=== PATIENT | female | born 1970 | race Caucasian/White ===

== ENCOUNTER 2019-06-03 11:39 | Outpatient (CLI) | payer BC ==
--- NOTE | 2019-06-03 12:11 | RAD ---
XR Chest Pa Lat STANDARD HISTORY: Chronic cough COMPARISON: None FINDINGS: The heart size is enlarged. The lungs are well expanded without focal areas of consolidatio n, pneumothorax or pleural effusions. IMPRESSION: Cardiomegaly
== END 2019-06-03 11:40 | disposition home or self-care (01) ==
LOC: BICRAD 11:39
PROVIDERS: ATTEND Family Medicine
DX: R05 Cough (principal); I51.7 Cardiomegaly
CPT/HCPCS: 71046